=== PATIENT | female | born 1960 | race African-American/Black ===

== ENCOUNTER 2017-03-24 10:19 | Emergency (ER) | payer BC ==
[~2017-03-24] VITALS: Ht 177.8 cm; Wt 87.5 kg
[~2017-03-24 10:19] MED LIST: ANTIVERT25 MG ORAL; BUSPAR10 MG ORAL; CEPHALEXIN500 MG ORAL; IBUPROFEN600 MG ORAL; IBUPROFEN800 MG ORAL; NORCO 5-325 TA1 EACH ORAL; PANTOPRAZOLE SO40 MG ORAL; RANITIDINE HCL150 MG ORAL; SILVADENE20 GM TP; WELLBUTRIN100 MG ORAL
[2017-03-24] MEDS ORDERED: Famotidine 20 MG/ 2ML VIAL IVP ONE (10:45)
[2017-03-24] MEDS ORDERED: Lidocaine 2% Visc 15ml soln ORAL ONE (10:45)
[2017-03-24] MEDS ORDERED: Mylanta II UD 30ml ORAL ONE (10:45)
[2017-03-24 11:19] LABS: APPEARANCE,URINE CLEAR; KETONES,URINE NEGATIVE (NEGATIVE); LEUKOCYTE ESTERASE ,URINE NEGATIVE (NEGATIVE); NITRITE,URINE NEGATIVE (NEGATIVE); PH,URINE 5 (4.5-8.0); PROTEIN,URINE NEGATIVE (NEGATIVE); UROBILINOGEN,URINE NORMAL MG/DL (0.0-1.0)
[2017-03-24 11:24] LABS: BACTERIA,URINE FEW /HPF; SQUAMOUS EPITHELIAL CELL,UR FEW /LPF (NONE/OCC); WBC,URINE 0-2 /HPF (0 - 2)
[2017-03-24 11:34] LABS: BASOPHILS % (AUTO) 1.1 % (0.0-2.0); EOSINOPHILS % (AUTO) 1.5 % (0.0-3.0); LYMPHOCYTES % (AUTO) 28.5 % (20.0-45.0); MEAN CORPUSCULAR HEMOGLOBIN 26.3 PG (27.0-31.0); MEAN CORPUSCULAR HGB CONC 31.9 G/DL (32.0-36.0); MEAN CORPUSCULAR VOLUME 83 FL (80-99); MEAN PLATELET VOLUME 6.4 FL (6.5-10.1); MONOCYTES % (AUTO) 8.1 % (1.0-10.0); NEUTROPHILS % (AUTO) 60.8 % (45.0-75.0); PLATELET COUNT 216 K/UL (150-450); RED BLOOD COUNT 4.95 M/UL (4.20-5.40); RED CELL DISTRIBUTION WIDTH 11.8 % (11.6-14.8); WHITE BLOOD COUNT 8.3 K/UL (4.8-10.8)
[2017-03-24 11:45] LABS: ALBUMIN/GLOBULIN RATIO 1.3 (1.0-2.7); CREATININE 1.2 mg/dL (0.5-0.9); GLOMERULAR FILTRATION RATE 56.1 mL/min (>60); POTASSIUM 4.4 mEQ/L (3.4-4.9); TOTAL PROTEIN 6.7 g/dL (6.6-8.7)
[2017-03-24 11:46] LABS: TROPONIN I < 0.30 ng/mL (<=0.30)
[2017-03-24 11:54] VITALS: BP 101/71
[2017-03-24 13:20] VITALS: BP 103/71
[2017-03-24] MEDS ORDERED: Ketorolac 30mg Inj IV ONE (13:30)
[2017-03-24] MEDS ORDERED: Acetaminophen 500mg (ES) tab ORAL ONE ×2 (13:35→14:30)
[2017-03-24 14:32] VITALS: BP 106/74
--- NOTE | 2017-03-24 15:13 | Emergency Room Report ---
History of Present Illness General Chief Complaint: Abdominal Pain Source: Patient Present Illness HPI Patient states that she's had pain in her upper abdomen for the past week. She does have a history of acid reflux. She has had some nausea but no vomiting. She's had normal bowel movements. She denies diarrhea or constipation. She denies dysuria or hematuria. She associates onset of the symptoms with food that she had eaten from a grocery store. She denies fever or chills. She denies chest pain or shortness of breath. She has no other complaints. Allergies: Coded Allergies: No Known Allergies (Unverified , 10/04/13) Patient History Past Medical History: none, see triage record, GERD Social History: Denies: alcohol use, drug use, smoking Last Menstrual Period: N/A Now: No Reviewed Nursing Documentation: PMH: Agreed, PSxH: Agreed Nursing Documentation-PMH Past Medical History: No Stated History Review of Systems All Other Systems: negative except mentioned in HPI Physical Exam Vital Signs Date Time Temp Pulse Resp B/P Pulse Ox O2 Delivery O2 Flow Rate FiO2 03/24/17 10:39 98.4 79 18 107/65 97 Room Air Sp02 EP Interpretation: reviewed, normal General Appearance: no apparent distress, alert, GCS 15, non-toxic Head: normocephalic, atraumatic Eyes: bilateral eye PERRL, bilateral eye normal inspection ENT: hearing grossly normal, normal pharynx, no angioedema, normal voice Neck: full range of motion, supple/symm/no masses Respiratory: chest non-tender, lungs clear, normal breath sounds, speaking full sentences Cardiovascular #1: regular rate, rhythm, no edema Gastrointestinal: normal bowel sounds, soft, non-distended, no guarding, no rebound, tenderness - TTP RUQ and epigastrium Rectal: deferred Musculoskeletal: back normal, gait/station normal, normal range of motion, non- tender Neurologic: alert, oriented x3, responsive, motor strength/tone normal, sensory intact, speech normal Psychiatric: judgement/insight normal, memory normal, mood/affect normal, no suicidal/homicidal ideation Skin: normal color, no rash, warm/dry, well hydrated Medical Decision Making Diagnostic Impression: Primary Impression: Abdominal pain ER Course This patient complains of upper abdominal pain. I had suspected gastritis or GERD and I did give the patient Mylanta, viscous lidocaine and IV Pepcid. However this does not improve her symptoms. She continued to have pain in her upper abdomen. Given the location of the pain I felt that a right upper quadrant ultrasound would be most appropriate to assess her liver, gallbladder and pancreas. The patient has no history or physical exam findings that would make me concerned for an appendicitis or diverticulitis. Laboratory workup to include CBC, CMP and urinalysis are all unremarkable and noncontributory. The patient's right upper quadrant ultrasound is pending at the time of this dictation. Final disposition per Dr. Rodriguez. Labs Test 03/24/17 10:50 03/24/17 11:12 Urine Color Pale yellow Urine Appearance Clear Urine pH 5 (4.5-8.0) Urine Specific [place] 1.020 (1.005-1.035) Urine Protein Negative (NEGATIVE) Urine Glucose (UA) Negative (NEGATIVE) Urine Ketones Negative (NEGATIVE) Urine Occult Blood 3+ (NEGATIVE) Urine Nitrite Negative (NEGATIVE) Urine Bilirubin Negative (NEGATIVE) Urine Urobilinogen Normal MG/DL (0.0-1.0) Urine Leukocyte Esterase Negative (NEGATIVE) Urine RBC 5-10 /HPF (0 - 2) Urine WBC 0-2 /HPF (0 - 2) Urine Squamous Epithelial Cells Few /LPF (NONE/OCC) Urine Bacteria Few /HPF (NONE) White Blood Count 8.3 K/UL (4.8-10.8) Red Blood Count 4.95 M/UL (4.20-5.40) Hemoglobin 13.0 G/DL (12.0-16.0) Hematocrit 40.9 % (37.0-47.0) Mean Corpuscular Volume 83 FL (80-99) Mean Corpuscular Hemoglobin 26.3 PG (27.0-31.0) Mean Corpuscular Hemoglobin Concent 31.9 G/DL (32.0-36.0) Red Cell Distribution Width 11.8 % (11.6-14.8) Platelet Count 216 K/UL (150-450) Mean Platelet Volume 6.4 FL (6.5-10.1) Neutrophils (%) (Auto) 60.8 % (45.0-75.0) Lymphocytes (%) (Auto) 28.5 % (20.0-45.0) Monocytes (%) (Auto) 8.1 % (1.0-10.0) Eosinophils (%) (Auto) 1.5 % (0.0-3.0) Basophils (%) (Auto) 1.1 % (0.0-2.0) Prothrombin Time 10.0 SEC (9.30-11.50) Prothromb Time International Ratio 1.0 (0.9-1.1) Activated Partial Thromboplast Time 26 SEC (23-33) Sodium Level 140 mEQ/L (135-145) Potassium Level 4.4 mEQ/L (3.4-4.9) Chloride Level 103 mEQ/L (98-107) Carbon Dioxide Level 29 mEQ/L (20-30) Anion Gap 8 (5-15) Blood Urea Nitrogen 16 mg/dL (7-23) Creatinine 1.2 mg/dL (0.5-0.9) Estimat Glomerular Filtration Rate 56.1 mL/min (>60) Glucose Level 95 mg/dL (74-106) Calcium Level 9.0 mg/dL (8.6-10.2) Total Bilirubin 0.4 mg/dL (0.0-1.2) Aspartate Amino Transf (AST/SGOT) 17 U/L (5-40) Alanine Aminotransferase (ALT/SGPT) 14 U/L (3-33) Alkaline Phosphatase 81 U/L (35-104) Troponin I < 0.30 ng/mL (<=0.30) Total Protein 6.7 g/dL (6.6-8.7) Albumin 3.8 g/dL (3.5-5.2) Globulin 2.9 g/dL Albumin/Globulin Ratio 1.3 (1.0-2.7) Lipase 22 U/L (< 60) EKG Diagnostic Results Rate: normal Rhythm: NSR ST Segments: no acute changes Other Impression IRBBB Rhythm Strip Diag. Results EP Interpretation: yes Rate: 70's Rhythm: NSR, no PVC's, no ectopy Last Vital Signs Date Time Temp Pulse Resp B/P Pulse Ox O2 Delivery O2 Flow Rate FiO2 03/24/17 14:32 97.9 82 18 106/74 98 Room Air Referrals: NON PHYSICIAN (PCP) IVY WELLS D.O. Mar 24, 2017 15:13
--- NOTE | 2017-03-24 16:02 | Diagnostic Imaging Report ---
Indication: Abdominal pain Technique: Butler-scale and duplex images of the upper abdomen were obtained Comparison: None Findings: Gallbladder is unremarkable, without stones, wall thickening, nor pericholecystic fluid. Sonographic Greene's sign is negative. Common bile duct measures 4 mm in diameter. No intrahepatic biliary ductal dilatation. Liver demonstrates normal echogenicity, no focal abnormality. Portal vein and hepatic veins are patent. Pancreas is unremarkable. Spleen is unremarkable. Left kidney measures 10 cm in length. Right kidney measures 9.9 cm length. Both kidneys demonstrate normal echogenicity. There is no hydronephrosis. No focal abnormality . Non-aneurysmal abdominal aorta . Impression: Negative
[2017-03-24] MEDS ORDERED: OMEPRAZOLE40 M1 ORAL (16:18)
[2017-03-24] MEDS ORDERED: ZANTAC150 MG ORAL (16:18)
[2017-03-24 16:30] VITALS: BP 121/77
--- NOTE | 2017-03-30 19:08 | Cardiology Report ---
APPROVED REPORT EKG Measurement Heart [id number] Normal sinus rhythm Possible Left atrial enlargement Incomplete right bundle branch block Borderline ECG
== END 2017-03-24 16:40 | disposition home or self-care (01) ==
LOC: EMR 11:03
DX: R10.10 Upper abdominal pain, unspecified (principal); K21.9 Gastro-esophageal reflux disease without esophagitis
CPT/HCPCS: 36415; 76700; 80053; 81003; 83690; 84484; 85025; 85610; 85730; 93005; 96361; 96375; 99284

== ENCOUNTER 2018-04-18 14:39 | Emergency (ER) | payer BC, OTHER ==
[~2018-04-18] VITALS: Ht 177.8 cm; Wt 95.3 kg
[~2018-04-18 14:39] MED LIST changes: +OMEPRAZOLE40 M1 ORAL; +ZANTAC150 MG ORAL
[2018-04-18] MEDS ORDERED: NKM (14:45)
--- NOTE | 2018-04-18 15:28 | Emergency Room Report ---
History of Present Illness General Chief Complaint: Lower Extremity Injury Source: Patient Present Illness HPI 57 YO Female presents to the ED c/o 06/01 in severity left hip pain that is intermittent and responds to IBU 800. Pt. also reports sharp localized anterior knee pain that occurs when the knee is bent, or with raising form sitting position. pt. Denies previous injuries to these extremities or pain in the past. pt. reports onset of her symptoms occurred after she began working out regularly when she previously did not. Denies numbness tingling or loss of sensation or gross motor movements of the extremities, incontinence of bowel or bladder. Denies CP, Palpitations, LOC, AMS, dizziness, Changes in Vision, weakness or a sudden severe headache. Allergies: Coded Allergies: No Known Allergies (Unverified , 10/04/13) Patient History Past Medical History: see triage record Past Surgical History: none Pertinent Family History: none Last Menstrual Period: 2006 Nursing Documentation-[facility] Past Medical History: No Stated History Review of Systems All Other Systems: negative except mentioned in HPI Physical Exam Vital Signs Date Time Temp Pulse Resp B/P (MAP) Pulse Ox O2 Delivery O2 Flow Rate FiO2 04/18/18 14:41 98.2 78 18 108/70 98 Room Air 98.2 Sp02 EP Interpretation: reviewed, normal General Appearance: alert, GCS 15, non-toxic, mild distress Head: normocephalic, atraumatic Eyes: bilateral eye normal inspection, bilateral eye PERRL ENT: hearing grossly normal, normal voice Neck: full range of motion Respiratory: speaking full sentences Cardiovascular #1: no edema Musculoskeletal: back normal, normal range of motion, other - compensatory gait , tender - TTP to the lateral left hip, FROM, no clicking. TTP to the anterior left knee on the superficial patella. no clicking, no erythema, no contusions, FROM, no swelling noted. Neurologic: alert, oriented x3, responsive, motor strength/tone normal, sensory intact, speech normal, grossly normal Psychiatric: judgement/insight normal Skin: normal color, no rash, warm/dry, well hydrated Lymphatic: no adenopathy Medical Decision Making PA Attestation Dr. sepulveda is my supervising Physician whom patient management has been discussed with. Diagnostic Impression: Primary Impression: Hip pain, left Additional Impressions: Overuse syndrome Acute knee pain Qualified Codes: M25.562 - Pain in left knee ER Course 57 YO Female presents to the ED c/o 06/01 in severity left hip pain that is intermittent and responds to IBU 800. Pt. also reports sharp localized anterior knee pain that occurs when the knee is bent, or with raising form sitting position. pt. Denies previous injuries to these extremities or pain in the past. pt. reports onset of her symptoms occurred after she began working out regularly when she previously did not. Denies numbness tingling or loss of sensation or gross motor movements of the extremities, incontinence of bowel or bladder. Denies CP, Palpitations, LOC, AMS, dizziness, Changes in Vision, weakness or a sudden severe headache. Ddx considered but are not limited to Fracture, dislocation, contusion, Sprain/ Strain/Spasm, labrum tear Vital signs: are WNL, pt. is afebrile H&PE are most consistent with musculoskeletal injury will perform imaging to r/ o fractures/dislocations. ORDERS: - X-ray's left hip and knee - negative for fx, Dislocation, or significant soft tissue injury, per preliminary read in ED, and signed by CONNIE Barbour , my supervising physician has reviewed, and agrees with my interpretation. ED INTERVENTIONS: -Motrin 800 PO pt. given orthopedic referral to [facility]. DISCHARGE: At this time pt. is stable for d/c to home. Will provide printed patient care instructions, and any necessary prescriptions. Care plan and follow up instructions have been discussed with the patient prior to discharge. Other X-Ray Diagnostic Results Other X-Ray Diagnostic Results #1: X-Ray ordered: Left Hip # of Views/Limited Vs Complete: 2 View Indication: Pain EP Interpretation: Yes CONNIE Xray: Interpretation reviewed, by supervising MD, and agrees with findings. Interpretation: no dislocation, no soft tissue swelling, no fractures Impression: No acute disease Electronically Signed by: Pearl Barbour PA-C Other X-Ray Diagnostic Results #2: X-Ray ordered: Left knee # of Views/Limited Vs Complete: 3 View Indication: Pain EP Interpretation: Yes CONNIE Xray: Interpretation reviewed, by supervising MD, and agrees with findings. Interpretation: no dislocation, no soft tissue swelling, no fractures Impression: No acute disease Electronically Signed by: Pearl Barbour PA-C Last Vital Signs Date Time Temp Pulse Resp B/P (MAP) Pulse Ox O2 Delivery O2 Flow Rate FiO2 8/27/18 14:41 98.2 78 18 108/70 98 Room Air 98.2 Disposition: HOME, SELF-CARE Condition: Stable Scripts Diclofenac Sodium (VOLTAREN) 100 Gm Gel..gram. 1 APPLIC TP BID, #100 GM Prov: Pearl Barbour 04/18/18 Naproxen* (NAPROXEN*) 500 Mg Tablet.dr 500 MG ORAL TWICE A DAY, #30 TAB Prov: Pearl Barbour 04/18/18 Referrals: Esteban Noonan MD,Stew Magdaleno,Juice Varela MD Patient Instructions: Hip Bursitis, Hip Pain Additional Instructions: Take medications as directed. Follow up with your primary care provider for referral to [facility] in 3-5 days If symptoms persist PHYSICAL THERAPY or MRI may be required at the discretion of your PCP or Ortho Specialist. --Please review list of primary care clinics, if you do not already have a primary care provider who can give you an Orthopedic Referral. Return sooner to ED if new symptoms occur, or current symptoms become worse. - Please note that this Emergency Department Report was dictated using [employer] history instructor technology software, occasionally this can lead to erroneous entry secondary to interpretation by the dictation equipment. Pearl Barbour Apr 18, 2018 15:28
--- NOTE | 2018-04-18 16:00 | Diagnostic Imaging Report ---
Indications: hip pain Findings: Two views of the left hip were obtained. No acute fracture is demonstrated. Alignment of the hip is within normal limits. Soft tissues are unremarkable. Impression: Negative for acute injury.
--- NOTE | 2018-04-18 16:00 | Diagnostic Imaging Report ---
Indication: Knee Pain 3 views of the left knee were obtained. Findings: No acute fracture, malalignment, or joint effusion are identified. Joint space is relatively well-maintained. Impression: Negative for acute injury
[2018-04-18] MEDS ORDERED: NAPROXEN500 M1 ORAL (16:20)
[2018-04-18] MEDS ORDERED: VOLTAREN100 G1 TP (16:20)
[2018-04-18 16:27] VITALS: BP 108/70
[2018-04-18 16:28] VITALS: BP 108/70
== END 2018-04-18 16:32 | disposition home or self-care (01) ==
LOC: EMR 15:17
DX: M25.552 Pain in left hip (principal); M25.562 Pain in left knee
CPT/HCPCS: 73502; 99284